=== PATIENT | male | born 1950 ===

== ENCOUNTER → 2017-03-17 | Outpatient (CLI) | payer OTHER ==
[2017-03-17 14:27] LABS: CALCIUM 8.7 mg/dl (8.5-10.1)
[2017-03-17 14:42] LABS: ALT/SGPT 28 U/L (12-78); BLOOD UREA NITROGEN 14 mg/dl (7-18); BUN/CREATININE RATIO 12.4 (10-20); CARBON DIOXIDE 30 mmol/L (21-32); CHLORIDE 102 mmol/L (98-107); CHOLESTEROL 202 mg/dl (0-200); CHOLESTEROL/HDL RATIO 2.9; GLUCOSE 100 mg/dl (70-99); HDL CHOLESTEROL 70 mg/dl; LDL CHOLESTEROL CALCULATED 117 mg/dl; POTASSIUM 4.1 mmol/L (3.5-5.1); SODIUM 140 mmol/L (136-145); TRIGLYCERIDES 73 mg/dl (0-150); VERY LOW DENSITY LIPOPROT CALC 15 mg/dl
[2017-03-17 14:45] LABS: AST/SGOT 21 U/L (15-37)
== END | disposition home or self-care (01) ==
LOC: C.LABMFLN 07:36
PROVIDERS: ATTEND Family Medicine
DX: I10 Essential (primary) hypertension (principal); E78.01 Familial hypercholesterolemia; Z12.5 Encounter for screening for malignant neoplasm of prostate

== ENCOUNTER → 2017-04-14 | Outpatient (CLI) | payer OTHER | END | disposition home or self-care (01) | LOC: C.LABMFLN 08:03 | PROVIDERS: ATTEND Family Medicine | DX: M79.1 Myalgia (principal) ==

== ENCOUNTER → 2017-12-07 | Outpatient (CLI) | payer OTHER | END | disposition home or self-care (01) | LOC: C.LABMFLN 08:43 | PROVIDERS: ATTEND Family Medicine | DX: E78.01 Familial hypercholesterolemia (principal); M85.80 Other specified disorders of bone density and structure, unspecified site ==